=== PATIENT | female | born 1970 ===

== ENCOUNTER 2017-07-29 09:07 | Day surgery (SDC) | payer MEDICAID ==
[2017-07-29] MEDS ORDERED: Lactated Ringer's 1,000 ML IV ONE (09:27)
[2017-07-29 09:52] VITALS: TEMP 97
[2017-07-29] MEDS ORDERED: Lidocaine 2% MPF (5 ml) Inj ONE (10:03)
[2017-07-29] MEDS ORDERED: Propofol 10 mg/ml Inj (20 ML) ONE (10:03)
[2017-07-29 10:38] VITALS: PULSE 61
[2017-07-29 10:53] VITALS: BP 131/70; RESP 14; O2SAT 100
== END 2017-07-29 11:15 | disposition home or self-care (01) ==
LOC: H.ENDO 09:07
PROVIDERS: ATTEND Internal Medicine Gastroenterology
DX: Z12.11 Encounter for screening for malignant neoplasm of colon (principal); I10 Essential (primary) hypertension; K64.8 Other hemorrhoids; D12.6 Benign neoplasm of colon, unspecified; K29.50 Unspecified chronic gastritis without bleeding; K30 Functional dyspepsia; K31.9 Disease of stomach and duodenum, unspecified
CPT/HCPCS: 43239; 45380; 88305; J2704; J7120